=== PATIENT | male | born 1985 | race African-American/Black ===

== ENCOUNTER 2019-12-13 19:32 | Emergency (ER) | payer SELFPAY ==
[~2019-12-13] VITALS: Ht 177.8 cm; Wt 83.0 kg
[2019-12-13 19:45] VITALS: BP 129/79
--- NOTE | 2019-12-13 21:15 | Diagnostic Imaging Report ---
EXAM: XR Chest, 1 View CLINICAL HISTORY: COUGH TECHNIQUE: Frontal view of the chest. COMPARISON: No relevant prior studies available. FINDINGS: Lungs: The lungs are grossly clear. Pleural space: No definite plain film evidence for pneumothorax. Heart: Unremarkable. No cardiomegaly. Mediastinum: Unremarkable. Bones/joints: Unremarkable. IMPRESSION: Unremarkable frontal view of the chest.
--- NOTE | 2019-12-13 21:20 | Emergency Room Report ---
History of Present Illness General Chief Complaint: Back Pain-No Injury Source: Patient (Lia Mccarthy) Present Illness HPI 34-year-old male with no significant past medical history here complaining of 1 week of cough and congestion that started with sore throat. Denies any fever and chills, recent travel, coming, we will have travel. Patient has been taking [id number] cough medication with symptom relief. Is in no distress and is afebrile. Also complains of sudden onset of right upper back pain upon coughing. Also complains of shortness of breath with takes deep breaths. However smokes marijuana. Is sitting comfortably with stable vital signs. Denies pleuritic chest pain, calf tenderness and swelling COVID-19 risk:Travel to affect: No Has patient experienced solorzano: No (Lia Mccarthy) Allergies: Coded Allergies: No Known Allergies (Unverified , 12/13/19) Patient History Past Medical History: see triage record Past Surgical History: none Pertinent Family History: none Social History: Reports: drug use - Marijuana Immunizations: UTD Reviewed Nursing Documentation: PMH: Agreed; PSxH: Agreed (Lia Mccarthy) Nursing Documentation-PMH Past Medical History: No Stated History (Lia Mccarthy) Review of Systems All Other Systems: negative except mentioned in HPI (Lia Mccarthy) Physical Exam Vital Signs Date Time Temp Pulse Resp B/P (MAP) Pulse Ox O2 Delivery O2 Flow Rate FiO2 12/13/19 19:36 98.2 68 19 129/79 (96) 97 Room Air Sp02 EP Interpretation: reviewed, normal General Appearance: no apparent distress, alert, GCS 15, non-toxic Head: normocephalic, atraumatic Eyes: bilateral eye normal inspection, bilateral eye PERRL ENT: hearing grossly normal, normal pharynx, no angioedema, normal voice Neck: full range of motion, supple, thyroid normal, no meningismus, supple/symm /no masses Respiratory: chest non-tender, lungs clear, normal breath sounds, no rhonchi, no wheezing, speaking full sentences Cardiovascular #1: regular rate, rhythm, no edema, no murmur Gastrointestinal: normal bowel sounds, non tender, soft, non-distended, no guarding, no rebound Rectal: deferred Genitourinary: no CVA tenderness Musculoskeletal: back normal, no calf tenderness, pelvis stable, non-tender Neurologic: alert, motor strength/tone normal, oriented x3, sensory intact, responsive, speech normal Psychiatric: judgement/insight normal, memory normal, mood/affect normal, no suicidal/homicidal ideation Skin: no rash Lymphatic: no adenopathy (Lia Mccarthy) Medical Decision Making PA Attestation All diagnoses and treatment plans were reviewed and discussed with my supervising physician Dr. Bartholomew (Lia Mccarthy) Diagnostic Impression: Primary Impression: Pneumonitis Additional Impression: Muscle spasm of back ER Course 34-year-old male with no significant past medical history here complaining of 1 week of cough and congestion that started with sore throat. Denies any fever and chills, recent travel, coming, we will have travel. Patient has been taking [id number]-[id number]-gijrugj cough medication with symptom relief. Is in no distress and is afebrile. Also complains of sudden onset of right upper back pain upon coughing. Also complains of shortness of breath with takes deep breaths. However smokes marijuana. Is sitting comfortably with stable vital signs. Denies pleuritic chest pain, calf tenderness and swelling Ddx considered but are not limited to: bronchitis, PNA, URI viral, bacterial bronchitis, pneumonitis, pneumothorax Vital signs: are WNL, pt. is afebrile H&PE are most consistent with: Pneumonitis, muscle spasm of back secondary to cough ORDERS: Chest x-ray, azithromycin, guaifenesin, Robaxin, Motrin ED INTERVENTIONS: None required at this time. DISCHARGE: At this time pt. is stable for d/c to home. Will provide printed patient care instructions, and any necessary prescriptions. Care plan and follow up instructions have been discussed with the patient prior to discharge. Take medication as directed, follow-up primary care provider, increase oral hydration, avoid smoking marijuana, if worsening symptoms return to the emergency room (Lia Mccarthy) Chest X-Ray Diagnostic Results Chest X-Ray Diagnostic Results : Chest X-Ray Ordered: Yes # of Views/Limited/Complete: 1 View Indication: Other - Cough EP Interpretation: Yes PA Xray: Interpretation reviewed, by supervising MD, and agrees with findings. Interpretation: no consolidation, no effusion, no pneumothorax Impression: No acute disease Electronically Signed by: Lia Pantoja PA-C (Lia Mccarthy) Chest X-Ray Diagnostic Results : Electronically Signed by: Fanta Barclay documentation of Xray reviewed by me and is accurate, Gianni Bartholomew MD (Gianni Bartholomew MD) Last Vital Signs Date Time Temp Pulse Resp B/P (MAP) Pulse Ox O2 Delivery O2 Flow Rate FiO2 12/13/19 19:45 98.2 19 129/79 97 Room Air 12/13/19 19:36 68 (Lia Mccarthy) Disposition: HOME, SELF-CARE Condition: Stable Scripts Ibuprofen* (MOTRIN*) 600 Mg Tablet 600 MG ORAL THREE TIMES A DAY, #30 TAB 0 Refills Prov: Lia Mccarthy 12/13/19 Methocarbamol* (ROBAXIN-500*) 500 Mg Tablet 500 MG ORAL TID PRN for For Pain, #15 TAB 0 Refills Prov: Lia Mccarthy 12/13/19 Guaifenesin* (GUAIFENESIN*) 100 Mg/5 Ml Liquid 15 ML ORAL Q8H, #120 ML 0 Refills Prov: Lia Mccarthy 12/13/19 Azithromycin* (ZITHROMAX*) 250 Mg Tablet 250 MG ORAL DAILY, #6 TAB 0 Refills Take two tables once daily for 1 day, then one tablet once daily for 4 days. Prov: Lia Mccarthy 12/13/19 Patient Instructions: Muscle Cramps and Spasms, [id number], Pneumonitis Additional Instructions: Take medication as directed, follow with primary care provider, increase oral hydration, if worsening symptoms return to emergency room Lia Mccarthy Dec 13, 2019 21:20 Gianni Bartholomew MD Dec 16, 2019 01:47
[2019-12-13] MEDS ORDERED: IBUPROFEN600 MG ORAL (21:21)
[2019-12-13] MEDS ORDERED: ZITHROMAX250 MG ORAL (21:21)
[2019-12-13] MEDS ORDERED: ROBAXIN-500MG ORAL (21:21)
[2019-12-13] MEDS ORDERED: GUAIFENESI100 MG/5 M ORAL (21:21)
[2019-12-13 21:24] VITALS: BP 129/79
== END 2019-12-13 21:25 | disposition home or self-care (01) ==
LOC: EMR 20:20
DX: J18.9 Pneumonia, unspecified organism (principal); M62.830 Muscle spasm of back
CPT/HCPCS: 71045; 99283